=== PATIENT | male | born 2000 | race Caucasian/White ===

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

== ENCOUNTER 2022-08-11 15:37 | Emergency (ER) | payer MEDICAID, SELFPAY ==
--- NOTE | ~2022-08-11 | XR_ITS ---
EXAMINATION: XR TIBIA AND FIBULA, RIGHT CLINICAL INFORMATION: Injury COMPARISON: None TECHNIQUE: AP and lateral views of the right tibia and fibula were obtained. FINDINGS: The bones and soft tissues are normal. No fracture. No osseous lesions. XR/XR tibia fibula RT 2V IMPRESSION: No fracture.
[2022-08-11 16:33] VITALS: BP 116/61; PULSE 73; RESP 16; TEMP 36.4; O2SAT 99; BMI 29.7
--- NOTE | 2022-08-11 16:33 | ED_ITS ---
HPI - Extremity Injury (Lower) General Chief Complaint: Extremity Injury, Lower <REKHA Boyd - Last Filed: 08/11/22 16:39> Stated Complaint: trampoline accident <REKHA Boyd - Last Filed: 08/11/22 16:39> Time Seen by Provider: 08/11/22 18:04 <REKHA Boyd - Last Filed: 08/11/22 16:39> Source: patient <REKHA Carey - Last Filed: 08/11/22 18:51> Mode of arrival: ambulatory <REKHA Carey Last Filed: 08/11/22 18:51> Limitations: no limitations <REKHA Carey Last Filed: 08/11/22 18:51> History of Present Illness HPI Narrative: Patient is a 22 year old assigned male at with no reported medical history presenting to the emergency department today with right lower leg pain. Patient states that 2 days ago he had a large individual fall onto his right leg on a trampoline and he is still having pain. Patient denies any dizziness, lightheadedness, abdominal pain, nausea, vomiting, fever, chills, blurry vision, double vision, loss of vision, chest pain, difficulty breathing, shortness of breath, back pain, night sweats, pain with urination, increased urinary frequency, increased urinary urgency, blood in his urine or stool, syncope or a near syncopal episode, bowel incontinence, bladder incontinence, bowel retention, bladder retention, or any other complaints at this time. <REKHA Carey - Last Filed: 08/11/22 18:51> MD complaint: leg injury <REKHA Carey - Last Filed: 08/11/22 18:51> Onset (ago): day(s) (2) <REKHA Carey Last Filed: 08/11/22 18:51> Type of Injury: blunt <REKHA Carey Last Filed: 08/11/22 18:51> Severity: mild <REKHA Carey Last Filed: 08/11/22 18:51> Severity scale (1-10): 3 <REKHA Carey Last Filed: 08/11/22 18:51> Exacerbating factors: nothing <REKHA Carey Last Filed: 08/11/22 18:51> Context: direct blow <REKHA Carey Last Filed: 08/11/22 18:51> Other symptoms: none <REKHA Carey Last Filed: 08/11/22 18:51> Related Data Home Medications: Previous Rx's Medication Instructions Recorded diphenhydramine HCl 25 mg capsule 25 mg PO TID PRN itching #30 caps 03/23/21 (Benadryl) famotidine 20 mg tablet (Pepcid) 20 mg PO BID #20 tabs 03/23/21 prednisone 20 mg tablet 60 mg PO DAILY 7 days #21 tabs 03/23/21 <REKHA Boyd Last Filed: 08/11/22 16:39> Allergies/Adverse Reactions: Allergies Allergy/AdvReac Type Severity Reaction Status Date / Time No Known Allergies Allergy Verified 08/11/22 16:37 <REKHA Boyd Last Filed: 08/11/22 16:39> Review of Systems Constitutional: Constitutional: Reports no additional constitutional complaints, Denies chills, Denies fever(s) and Denies night sweats <REKHA Carey Last Filed: 08/11/22 18:51> Eyes: Eyes: Reports no additional eye complaints, Denies blurry vision, Denies change in vision, Denies diplopia, Denies eye discharge, Denies loss of vision and Denies eye pain <REKHA Carey Last Filed: 08/11/22 18:51> ENT: Denies dizziness <REKHA Carey Last Filed: 08/11/22 18:51> Cardiovascular: Cardiovascular: Reports no additional cardiovascular complaints, Denies chest pain, Denies lightheadedness, Denies Loss of Consciousness and Denies dyspnea <REKHA Carey Last Filed: 08/11/22 18:51> Respiratory: Respiratory: Reports no additional respiratory complaints and Denies dyspnea <REKHA Carey Last Filed: 08/11/22 18:51> Gastrointestinal: Gastrointestinal: Reports no additional gastrointestinal complaints, Denies abdominal pain, Denies melena, Denies hematochezia, Denies change in bowel habits and Denies change in stool character <REKHA Carey - Last Filed: 08/11/22 18:51> Genitourinary: Genitourinary: Reports no additional male genitourinary complaints, Denies hematuria, Denies oliguria, Denies difficulty urinating, Denies dysuria, Denies urinary frequency, Denies urinary hesitancy, Denies urinary incontinence and Denies urinary urgency <REKHA Carey - Last Filed: 08/11/22 18:51> Musculoskeletal: Musculoskeletal: Reports no additional musculoskeletal complaints, Denies numbness and Denies tingling <REKHA Carey - Last Filed: 08/11/22 18:51> Comments: right lower leg pain <REKHA Carey - Last Filed: 08/11/22 18:51> Neurologic: Denies dizziness, Denies loss of vision, Denies numbness and Denies tingling <REKHA Carey - Last Filed: 08/11/22 18:51> Psychiatric: Psychiatric: Reports no additional psychiatric complaints <REKHA Carey - Last Filed: 08/11/22 18:51> Endocrine: Endocrine: Reports no additional endocrine complaints <REKHA Carey - Last Filed: 08/11/22 18:51> Hematologic/Lymphatic: Hematologic/Lymphatic: Reports no additional hematologic/lymphatic complaints <REKHA Carey - Last Filed: 08/11/22 18:51> Allergic/Immunologic: Allergic/Immunologic: Reports no additional allergic/immunologic complaints <REKHA Carey - Last Filed: 08/11/22 18:51> [facility] Past Medical History Attestation statement: The following information was validated with the patient. <REKHA Carey - Last Filed: 08/11/22 18:51> Source: old records reviewed and nursing notes reviewed <REKHA Carey - Last Filed: 08/11/22 18:51> Medical History: Medical History No pertinent past medical history <REKHA Boyd - Last Filed: 08/11/22 16:39> Social History Social History: Social History Advance Directives: No Advance Directives Information Provided: No <REKHA Boyd - Last Filed: 08/11/22 16:39> Physical Exam Vital Signs: Vital Signs: Last Vital Signs Temp 97.6 F 08/11/22 16:33 Pulse 73 08/11/22 16:33 Resp 16 08/11/22 16:33 BP 116/61 08/11/22 16:33 Pulse Ox 99 08/11/22 16:33 O2 Del Method 08/11/22 16:33 BMI result Body Mass Index 29.7 <REKHA Boyd - Last Filed: 08/11/22 16:39> Vital Signs: Last Vital Signs Temp 97.6 F 08/11/22 16:33 Pulse 73 08/11/22 16:33 Resp 16 08/11/22 16:33 BP 116/61 08/11/22 16:33 Pulse Ox 99 08/11/22 16:33 O2 Del Method 08/11/22 16:33 BMI result Body Mass Index 29.7 <REKHA Carey - Last Filed: 08/11/22 18:51> Const: General: cooperative, no acute distress, alert and awake <REKHA Carey - Last Filed: 08/11/22 18:51> Nutritional Appearance: well nourished <REKHA Carey - Last Filed: 08/11/22 18:51> Orientation/consciousness: patient oriented x3 <REKHA Carey - Last Filed: 08/11/22 18:51> Limitations: no limitations <REKHA Carey - Last Filed: 08/11/22 18:51> HEENT: Head: Yes normal to inspection and Yes atraumatic <REKHA Carey - Last Filed: 08/11/22 18:51> Ears: hearing grossly normal bilaterally and external ears normal <REKHA Carey - Last Filed: 08/11/22 18:51> General nose exam: Normal external nose present, no nasal discharge noted and no epistaxis <REKHA Carey - Last Filed: 08/11/22 18:51> Face and sinus: Yes normal facial exam, No abrasion and No laceration <REKHA Carey - Last Filed: 08/11/22 18:51> Mouth: Normal oral and palatal mucosa present, no drooling and no muffled voice <Marni Gracia [place] - Last Filed: 08/11/22 18:51> Eyes: General: appearance normal, both eyes and all related structures <Marni Gracia [place] - Last Filed: 08/11/22 18:51> Periorbital: periorbital findings normal <Marni Gracia [place] - Last Filed: 08/11/22 18:51> Eyelids: Yes eyelids normal <Marni Gracia [place] - Last Filed: 08/11/22 18:51> Conjunctivae: conjunctivae normal <Marni Gracia [place] - Last Filed: 08/11/22 18:51> Pupils: Equal, round and reactive pupils present <Marni Gracia [place] - Last Filed: 08/11/22 18:51> EOM: EOMs intact bilaterally <Marni Gracia [place] - Last Filed: 08/11/22 18:51> Neck: Neck: Yes normal visual inspection, Yes full ROM and Yes no lymphadenopathy <Marni Gracia [place] - Last Filed: 08/11/22 18:51> Chest: Chest palpation & inspection: normal inspection of the chest <Marni Trippsisi [place] - Last Filed: 08/11/22 18:51> Resp: Effort & Inspection: normal respiratory effort and able to speak in complete sentences <Marni Gracia [place] - Last Filed: 08/11/22 18:51> Auscultation: clear to auscultation bilaterally <Marni Trippsisi [place] - Last Filed: 08/11/22 18:51> Cardio: Rate: regular rate <Marni Gracia [place] - Last Filed: 08/11/22 18:51> Rhythm: regular rhythm <Marni Trippsisi [place] - Last Filed: 08/11/22 18:51> GI: Inspection: Yes normal to inspection <Marni Trippsisi [place] - Last Filed: 08/11/22 18:51> Neuro: General: patient oriented x3 and moves all extremities <Marni TrippREKHA laird - Last Filed: 08/11/22 18:51> Cranial nerves: Yes Equal, round and reactive pupils present <Marni Trippsisi [place] - Last Filed: 08/11/22 18:51> Cognition (Neuro): normal cognition <Marni TrippREKHA laird - Last Filed: 08/11/22 18:51> Motor exam (neuro): 5/5 motor strength present throughout <Marni GrcaiaREKHA - Last Filed: 08/11/22 18:51> Sensory Exam: Normal double simultaneous stimulation for sensation <Marni GraciaREKHA - Last Filed: 08/11/22 18:51> Coordination: [id number] test normal <Marni TrippREKHA laird - Last Filed: 08/11/22 18:51> Extrem: General: Yes normal to inspection, Yes full ROM and Yes capillary refill normal <Marni TrippREKHA laird - Last Filed: 08/11/22 18:51> Psych: Appearance: grossly normal <Marni TrippREKHA laird - Last Filed: 08/11/22 18:51> Mental Status: mental status grossly normal <Marni TrippREKHA laird - Last Filed: 08/11/22 18:51> Affect: normal affect <Marnimaura TrippREKHA laird - Last Filed: 08/11/22 18:51> Attitude: cooperative <Marni TrippREKHA laird - Last Filed: 08/11/22 18:51> Thought process: Normal thought process present <Marnimaura TrippREKHA laird - Last Filed: 08/11/22 18:51> Thought content: Normal thought content present <Marni TrippREKHA laird - Last Filed: 08/11/22 18:51> Insight: Good insight present (Psych) <Marnimaura TrippREKHA laird - Last Filed: 08/11/22 18:51> Course Course Course Narrative: 16:34 - RME - 22 yo male presents to the ER for evaluation of right lower leg injury s/p injury on 08/09. He states a large 6'5 man fell onto his right lower leg while at the [facility] [place]. He is ambulatory but has soft tissue tenderness and swelling of the lower right leg, most consistent with contusion and hematoma. Will get xray to r/o fx but most likely soft tissue injury. NV int act distally and compartments are soft and compressible. ruben wrap and ice placed on the leg for now. <REKHA Boyd - Last Filed: 08/11/22 16:39> Medical Decision Making Medical Decision Making MDM Narrative: Patient is a 22 year old assigned male at with no reported medical history presenting to the emergency department today with right lower leg pain. Patient's physical exam was unremarkable. Patient's right lower leg x-ray showed no acute process. I explained my physical exam findings as well as all test results to the patient. I answered all questions asked by the patient. I stressed the importance of the patient taking his medication as prescribed. I stressed the importance of the patient following up with his primary care provider. I stressed the importance of the patient returning to the emergency department immediately if his symptoms were to worsen or if he were to develop any dizziness, shortness of breath, difficulty breathing, chest pain, blurry vision, loss of vision, nausea, vomiting, abdominal pain, fever, chills, back pain, or any other complaints. Patient verbalized agreement and understanding with this treatment plan and discharge. <REKHA Carey - Last Filed: 08/11/22 18:51> Differential Diagnosis Differential Diagnoses: The differential diagnosis associated with the presentation includes <REKHA Carey - Last Filed: 08/11/22 18:51> right lower leg fracture, right lower leg pain <REKHA Carey - Last Filed: 08/11/22 18:51> Radiology Impression Discussion of test interpretation with radiology: I have reviewed the radiologist's reading. <REKHA Carey - Last Filed: 08/11/22 18:51> Radiologist Impression: My interpretation is in agreement with the radiologist's impression of this imaging study. EXAMINATION: XR TIBIA AND FIBULA, RIGHT CLINICAL INFORMATION: Injury? COMPARISON: None? TECHNIQUE: AP and lateral views of the right tibia and fibula were obtained. FINDINGS: The bones and soft tissues are normal. No fracture. No osseous lesions. ? XR/XR tibia fibula RT 2V IMPRESSION: No fracture. Dictated By: Natty Silva MD Signed By: Electronically signed by Natty Silva MD 08/11/22 1825 <REHKA Carey - Last Filed: 08/11/22 18:51> Discharge Plan Discharge Clinical Impression: Leg pain <REKHA Boyd - Last Filed: 08/11/22 16:39> Patient Disposition: Home, Self-Care <REKHA Boyd - Last Filed: 08/11/22 16:39> Instructions: Leg Pain (ED) <REKHA Boyd - Last Filed: 08/11/22 16:39> Additional Instructions: Follow up with your primary care provider and if pain persists >2 weeks, an orthopedic provider. Return to the emergency department immediately if your symptoms worsen or if you develop any dizziness, shortness of breath, difficulty breathing, chest pain, blurry vision, loss of vision, nausea, vomiting, abdominal pain, fever, chills, back pain, or any other complaints. <REKHA Boyd - Last Filed: 08/11/22 16:39> Prescriptions: No Action diphenhydramine HCl [Benadryl] 25 mg capsule 25 mg PO TID PRN (Reason: itching) Qty: 30 0RF famotidine [Pepcid] 20 mg tablet 20 mg PO BID Qty: 20 0RF prednisone 20 mg tablet 60 mg PO DAILY 7 Days Qty: 21 0RF <REKHA Boyd - Last Filed: 08/11/22 16:39> Referrals: [facility] [Provider Group] (If pain persists >2 weeks, call to establish and follow up with an orthopedic provider. ) [facility] [Primary Care Provider] - <REKHA Boyd - Last Filed: 08/11/22 16:39> Stand Alone Forms: Work/School Release <REKHA Boyd - Last Filed: 08/11/22 16:39> Interventions: ED Discharge Assessment Last Done: 08/11/22 18:25 <REKHA Boyd - Last Filed: 08/11/22 16:39> Discharge Date/Time: 08/11/22 18:26 <REKHA Boyd - Last Filed: 08/11/22 16:39> Print Language: Maltese <REKHA Boyd - Last Filed: 08/11/22 16:39>
== END 2022-08-11 18:26 | disposition home or self-care (01) ==
PROVIDERS: Emergency Provider Emergency Medicine
DX: M79.661 Pain in right lower leg (principal)
CPT/HCPCS: 73590; 99282; 99283

== ENCOUNTER 2022-09-30 10:37 | Emergency (ER) | payer MEDICAID, SELFPAY ==
--- NOTE | ~2022-09-30 | US_ITS ---
EXAMINATION: US ABDOMEN COMPLETE CLINICAL INFORMATION: Abdominal pain and vomiting. COMPARISON: None TECHNIQUE: Real-time imaging of the abdominal viscera. FINDINGS: PANCREAS: Visualized portions unremarkable. ABDOMINAL AORTA: Visualized portions unremarkable. INFERIOR VENA CAVA: Visualized portions unremarkable. LIVER: Diffuse increased echotexture without focal abnormality. GALLBLADDER: Unremarkable. COMMON BILE DUCT: Normal in caliber measuring 0.2 cm in diameter. RIGHT KIDNEY: 10.1 cm. Unremarkable. LEFT KIDNEY: 11.1 cm. Unremarkable. SPLEEN: 11.1 cm. Unremarkable. FREE FLUID: None. US/US abdomen complete IMPRESSION: Diffuse increased hepatic echotexture is nonspecific in a patient of this age, but can be seen with hepatic steatosis. No other significant abnormality.
[2022-09-30 10:43] VITALS: BP 116/64; PULSE 78; RESP 18; TEMP 36.6; O2SAT 98; BMI 28.1
[2022-09-30 11:10] LABS: MANUAL DIFF FLAG NO
[2022-09-30 11:12] LABS: Basophils Absolute Auto 0.1 X10*3/uL (0.0-0.2); Basophils Percent Auto 0.7 % (0-2); Eosinophils Absolute Auto 0.1 X10*3/uL (0.0-0.4); Eosinophils Percent Auto 1.5 % (0-4); Hematocrit 42.5 % (42.0-52.0); Hemoglobin 14.4 g/dl (14.0-18.0); Imm Gran Abs Auto 0.02 X10*3/uL (0.00-0.03); Imm Gran Pct Auto 0.2 % (0.0-0.4); Lymphocytes Absolute Auto 2.4 X10*3/uL (1.2-4.9); Lymphocytes Percent Auto 27.7 % (20-40); Mean Corpuscular HGB Conc 33.9 g/dl (31.0-36.0); Mean Corpuscular Hemoglobin 30.6 pg (27.0-33.0); Mean Corpuscular Volume 90.2 fL (80.0-98.0); Mean Platelet Volume 10.1 fL (9.4-12.4); Monocytes Absolute Auto 0.6 X10*3/uL (0.1-1.2); Neutrophils Absolute Auto 5.5 x10*3/uL (2.0-8.3); Neutrophils Percent Auto 62.9 % (45-73); Platelet Count 311 X10*3/uL (160-400); Red Blood Count 4.71 X10*6/uL (4.60-5.80); Red Cell Distribution Width 12.4 % (11.0-16.0); White Blood Count 8.8 X10*3/uL (4.8-10.8)
[2022-09-30 11:28] LABS: Alanine Aminotransferase 42 U/L (0-40); Albumin Level 4.2 g/dL (3.5-5.0); Alkaline Phosphatase 49 U/L (39-117); Anion Gap 13 (12-20); Aspartate Amino Transferase 17 U/L (5-37); Bilirubin Direct 0.2 mg/dL (0.0-0.5); Bilirubin Total 0.4 mg/dL (0.0-1.0); Blood Urea Nitrogen 10 mg/dL (9-16); Calcium 9.2 mg/dL (8.4-10.2); Carbon Dioxide 25 mmol/L (22-29); Chloride 108 mmol/L (96-108); Creatinine Clr Calc Pharmacy 148.8; Estimated Glomerular Filt Rate > 60; Glucose Random 105 mg/dL (60-115); Lipase 24 U/L (8-78); Potassium 4.1 mmol/L (3.3-5.1); Sodium 142 mmol/L (135-145); Total Protein 6.6 g/dL (6.5-8.0)
--- NOTE | 2022-09-30 17:22 | ED.ABDPAIN ---
HPI - Abdominal Pain General Chief Complaint: Abdominal Pain Stated Complaint: vomiting Time Seen by Provider: 09/30/22 16:45 Source: patient Mode of arrival: ambulatory History of Present Illness HPI narrative: 22-year-old male with no significant past medical history presenting to the ED complaining of daily morning nausea and vomiting x2 weeks. States symptoms improve throughout the day. Reports mild abdominal discomfort when vomiting, however denies pain at present. Does report marijuana use. Denies fever, chills, dysuria/hematuria, flank pain, recent travel, suspicious food intake Onset (ago): week(s) Related Data Previous Rx's Medication Instructions Recorded diphenhydramine HCl 25 mg capsule 25 mg PO TID PRN itching #30 caps 03/23/21 (Benadryl) famotidine 20 mg tablet (Pepcid) 20 mg PO BID #20 tabs 03/23/21 prednisone 20 mg tablet 60 mg PO DAILY 7 days #21 tabs 03/23/21 ondansetron 4 mg disintegrating 4 mg PO Q8H PRN nausea and 09/30/22 tablet vomiting #10 tabs Allergies Allergy/AdvReac Type Severity Reaction Status Date / Time No Known Allergies Allergy Verified 09/30/22 10:43 Review of Systems Review of Systems Constitutional: No Fever, No Chills, No Fatigue, No Malaise ENT/Mouth: No Ear Pain, No Nasal Congestion, No sore throat, No Rhinorrhea, No Swallowing Difficulty Eyes: No Eye Pain, No Swelling, No Redness Cardiovascular: No Chest Pain, No SOB, No Dyspnea on Exertion, No Orthopnea, No Edema, No Palpitations Respiratory: No Cough, No Sputum, No Dyspnea Gastrointestinal: + Nausea, + Vomiting, No Diarrhea, No Constipation, + Abdominal discomfort Genitourinary: No irregular bleeding, No Dysuria, No Hematuria, No Flank Pain, No Urinary Flow Changes, No Hesitancy Musculoskeletal: No joint pain, No Myalgias, No Joint Swelling Skin: No Skin Lesions, No rash Neuro: No Weakness, No Headache Yes all other systems are reviewed and are negative Constitutional: Reports as per HPI [facility] Past Medical History Attestation statement: The following information was validated with the patient. Medical History No pertinent past medical history Social History Social History Advance Directives: No Physical Exam ED Vital Signs: Vital Signs - 24 hr 09/30/22 10:43 Temperature 98 F Pulse Rate 78 Respiratory Rate 18 Blood Pressure 116/64 Pulse Oximetry 98 BMI result Body Mass Index 28.1 Const General: cooperative, healthy appearing and no acute distress Orientation/consciousness: patient oriented x3 Limitations: no limitations HENMT Head: Yes normal to inspection and Yes atraumatic Ears: hearing grossly normal bilaterally General nose exam: Normal external nose present Face and sinus: Yes normal facial exam Eyes General: appearance normal, both eyes and all related structures EOM: EOMs intact bilaterally Neck Neck: Yes normal visual inspection and Yes no meningeal signs Resp Effort & Inspection: normal respiratory effort and no respiratory distress Cardio Rate: regular rate Heart sounds: S1 normal heart sound present and S2 normal heart sound present GI Inspection: Yes normal to inspection Palpation (GI): Soft to palpation, nontender, no guarding and not rigid General: Yes no CVA tenderness Back/Spine/Pelvis Back: no CVA tenderness Skin Rashes: no rashes Wounds: no wounds Neuro General: patient oriented x3, tone normal and no meningeal signs Gait exam (Neuro): Normal gait present Extrem General: Yes normal to inspection Course Course Course Narrative: -labs unremarkable US abdomen complete IMPRESSION: Diffuse increased hepatic echotexture is nonspecific in a patient of this age, but can be seen with hepatic steatosis. No other significant abnormality. -UA negative -patient tolerated p.o. GI cocktail without difficulty Results discussed with patient including worrisome signs and symptoms and strict return precautions, and when to return to the emergency department. They verbalized understanding and feel safe for discharge at this time. Medical Decision Making Medical Decision Making [facility] Narrative: 22-year-old male with no significant past medical history presenting to the ED complaining of daily morning nausea and vomiting x2 weeks. On exam vital signs stable, NAD, nontoxic appearing, abdomen soft/nontender, no CVA tenderness. Concern for marijuana induced nausea/vomiting/cyclical vomiting vs gastritis vs ?H pylori. Lower suspicion for cholecystitis/cholelithiasis, appendicitis, renal stone/pyelo Plan: Labs and abdomen ultrasound ordered in triage, GI cocktail Differential Diagnosis Differential Diagnoses: The differential diagnosis associated with the presentation includes as above Lab Data [facility] Lab Attestation statement: I reviewed the patient's lab results. 09/30/22 11:06 09/30/22 11:06 Labs: Lab Results 09/30/22 09/30/22 09/30/22 Range/Units 11:06 11:06 17:32 WBC 8.8 (4.8-10.8) X10*3/uL RBC 4.71 (4.60-5.80) X10*6/uL Hgb 14.4 (14.0-18.0) g/dl Hct 42.5 (42.0-52.0) % MCV 90.2 (80.0-98.0) fL MCH 30.6 (27.0-33.0) pg MCHC 33.9 (31.0-36.0) g/dl RDW 12.4 (11.0-16.0) % Plt Count 311 (160-400) X10*3/uL MPV 10.1 (9.4-12.4) fL Immature Gran % (Auto) 0.2 (0.0-0.4) % Neut % (Auto) 62.9 (45-73) % Lymph % (Auto) 27.7 (20-40) % [place] % (Auto) 7.0 (2-11) % Eos % (Auto) 1.5 (0-4) % Baso % (Auto) 0.7 (0-2) % Lymph # (Auto) 2.4 (1.2-4.9) X10*3/uL [place] # (Auto) 0.6 (0.1-1.2) X10*3/uL Eos # (Auto) 0.1 (0.0-0.4) X10*3/uL Baso # (Auto) 0.1 (0.0-0.2) X10*3/uL Abs Immat Gran (auto) 0.02 (0.00-0.03) X10*3/uL Absolute Neuts (auto) 5.5 (2.0-8.3) x10*3/uL Absolute Nucleated RBC 0.000 (0.0-0.012) X10*3/uL Nucleated RBC % (auto) 0.0 (0.0-0.2) /100WBC Sodium 142 (135-145) mmol/L Potassium 4.1 (3.3-5.1) mmol/L Chloride 108 (96-108) mmol/L Carbon Dioxide 25 (22-29) mmol/L Anion Gap 13 (12-20) BUN 10 (9-16) mg/dL Creatinine 0.81 (0.5-1.4) mg/dL Estim Creat Clear Calc 148.8 Estimated GFR > 60 Random Glucose 105 (60-115) mg/dL Calcium 9.2 (8.4-10.2) mg/dL Magnesium 2.2 (1.6-2.6) mg/dL Total Bilirubin 0.4 (0.0-1.0) mg/dL Direct Bilirubin 0.2 (0.0-0.5) mg/dL AST 17 (5-37) U/L ALT 42 H (0-40) U/L Alkaline Phosphatase 49 (39-117) U/L Total Protein 6.6 (6.5-8.0) g/dL Albumin 4.2 (3.5-5.0) g/dL Lipase 24 (8-78) U/L Urine Color Yellow Urine Appearance Cloudy Urine pH 8.0 (5.0-9.0) Ur Specific [place] 1.020 (1.005-1.025) Urine Protein Negative (Neg-Trace) mg/dL Urine Glucose (UA) Negative (Negative) mg/dL Urine Ketones Negative (Negative) mg/dL Urine Blood Negative (Negative) Urine Nitrite Negative (Negative) Ur Leukocyte Esterase Negative (Negative) Radiology Impression Discussion of test interpretation with radiology: I have reviewed the radiologist's reading. External Record Review External record reviewed: Prior outpatient labs and Prior outpatient radiology Medications Administered Discontinued Medications Generic Name Dose Route Start Last Admin Trade Name Freq PRN Reason Stop Dose Admin Al Hydroxide/Mg Hydroxide 30 ml 09/30/22 17:23 09/30/22 17:39 Magnesium Hydrox/Alum Hydrox 30 Ml Oral.Susp PO 09/30/22 17:24 30 ml ONCE ONE Administration Famotidine 20 mg 09/30/22 17:23 09/30/22 17:39 Famotidine 20 Mg Tablet PO 09/30/22 17:24 20 mg ONCE ONE Administration Lidocaine HCl 15 ml 09/30/22 17:23 09/30/22 17:39 Lidocaine Hcl Viscous 2 % 15 Ml Solution MUCOUS MEM 09/30/22 17:24 15 ml ONCE ONE Administration Discharge Plan Discharge Clinical Impression: Nausea & vomiting Patient Disposition: Home, Self-Care Instructions: Acute Nausea and Vomiting (ED) Additional Instructions: Your blood work was reassuring. Your urine is not infected. Your ultrasound shows some fatty liver. Avoid fatty/greasy foods/fried foods and alcohol Your nausea and vomiting could be related to your marijuana use, please avoid this Please follow-up with her doctor, you may need H pylori testing. Zofran as antinausea medication, take as needed. If symptoms persist or worsen, your unable to eat or drink return to the emergency department Prescriptions: New ondansetron 4 mg tablet,disintegrating 4 mg PO Q8H PRN (Reason: nausea and vomiting) Qty: 10 0RF No Action diphenhydramine HCl [Benadryl] 25 mg capsule 25 mg PO TID PRN (Reason: itching) Qty: 30 0RF famotidine [Pepcid] 20 mg tablet 20 mg PO BID Qty: 20 0RF prednisone 20 mg tablet 60 mg PO DAILY 7 Days Qty: 21 0RF Referrals: [facility] [place] [facility] [Provider Group] - 1 week Center,Formerly [facility] [Primary Care Provider] -
[2022-09-30] MEDS: Magnesium Hydrox/Alum Hydrox 30 ML ORAL.SUSP PO (17:39)
[2022-09-30] MEDS: Famotidine 20 MG TABLET PO (17:39)
[2022-09-30] MEDS: Lidocaine HCl Viscous 2 % 15 ML SOLUTION MUCOUS MEM (17:39)
[2022-09-30 17:47] LABS: Magnesium 2.2 mg/dL (1.6-2.6)
[2022-09-30 17:49] LABS: Appearance Urine Cloudy; Color Urine Yellow; Glucose Urine UA Negative (Negative); Leukocyte Esterase Urine Negative (Negative); Nitrite Urine Negative (Negative); Urine Blood Negative (Negative); Urine Ketones Negative (Negative); Urine Protein Negative (Neg-Trace)
== END 2022-09-30 18:14 | disposition home or self-care (01) ==
PROVIDERS: Physician Assistant; Emergency Provider Emergency Medicine
DX: R11.2 Nausea with vomiting, unspecified (principal); R10.13 Epigastric pain; Z79.899 Other long term (current) drug therapy
CPT/HCPCS: 36415; 76700; 80048; 80076; 81003; 83690; 83735; 85025; 99282; 99284

== ENCOUNTER 2023-08-18 20:42 | Emergency (ER) | payer SELFPAY ==
[2023-08-18 21:30] VITALS: BP 118/61; PULSE 93; RESP 18; TEMP 36.3; O2SAT 97; BMI 25.1
--- NOTE | 2023-08-18 22:56 | ED.GENADULT ---
HPI - General Adult General Chief complaint: Upper Respiratory Symptoms Stated complaint: flu like symptoms/sore throat Time Seen by Provider: 08/18/23 21:52 Source: patient, family, RN notes reviewed and old records reviewed Mode of arrival: ambulatory Limitations: no limitations History of Present Illness HPI narrative: 23-year-old male presents for evaluation of dry cough, fevers, body aches, sore throat. Patient reports he tested positive for COVID-19 1 week ago today He reports that his symptoms returned a few days ago His significant other and daughter are present similar symptoms Related Data Previous Rx's Medication Instructions Recorded diphenhydramine HCl 25 mg capsule 25 mg PO TID PRN itching #30 caps 03/23/21 (Benadryl) famotidine 20 mg tablet (Pepcid) 20 mg PO BID #20 tabs 03/23/21 prednisone 20 mg tablet 60 mg (3 x 20 mg) PO DAILY 7 days 03/23/21 #21 tabs ondansetron 4 mg disintegrating 4 mg PO Q8H PRN nausea and 09/30/22 tablet vomiting #10 tabs Allergies Allergy/AdvReac Type Severity Reaction Status Date / Time No Known Allergies Allergy Verified 09/30/22 10:43 Review of Systems Constitutional: Constitutional: Reports body ache(s), Reports chills, Reports fever(s) and Reports headache(s) ENT: Reports headache(s) and Reports sore throat Cardiovascular: Cardiovascular: Denies dyspnea Respiratory: Respiratory: Reports cough and Denies dyspnea Musculoskeletal: Musculoskeletal: Denies back pain Neurologic: Reports headache(s) PMFSH Past Medical History Onset Date is defined in the Problem List Problems that require an onset date and time if occurred within 24 hrs of arrival to the ED Aortic Dissection and Rupture; Neurologic impairment; Cardiopulmonary Arrest; Endotracheal Intubation; Insertion or Replacement of Mechanical Circulatory Assist Device Medical History No pertinent past medical history Social History Social History Advance Directives: No Advance Directives Information Provided: No Physical Exam ED Vital Signs: Vital Signs - 24 hr 08/18/23 21:30 Temperature 97.4 F Pulse Rate 93 Respiratory Rate 18 Blood Pressure 118/61 Pulse Oximetry 97 Oxygen Delivery Method Room Air BMI result Body Mass Index 25.1 Const General: healthy appearing, comfortable, no acute distress, alert and awake Nutritional Appearance: well nourished Orientation/consciousness: patient oriented x3 HENMT Head: Yes normocephalic and Yes atraumatic Eyes Eyelids: Yes eyelids normal Conjunctivae: conjunctivae normal Sclerae: sclerae normal Corneas: corneas normal EOM: EOMs intact bilaterally Neck Neck: Yes full ROM Resp Effort & Inspection: normal respiratory effort, able to speak in complete sentences and not labored Skin General skin exam: elasticity normal Neuro General: patient oriented x3 Cranial nerves: Yes Bilaterally intact EOM present Cognition (Neuro): normal cognition Extrem Other: Moving all extremities well without any obvious deformities Medical Decision Making Medical Decision Making [facility] Narrative: 23-year-old male, otherwise healthy presents for evaluation of flu-like symptoms. He tested positive for influenza. His symptoms started over 48 hours ago, he is outside the window for Tamiflu treatment. His vital signs remained stable, he will be discharged with symptomatic care only Differential Diagnosis Differential Diagnoses: The differential diagnosis associated with the presentation includes Influenza COVID-19 Upper respiratory infection Viral syndrome Pneumonia Lab Data Labs: Lab Results 08/18/23 Range/Units 22:06 COVID-19 (RIGO) Negative (Negative) COVID-19 Clin Com See Note Influenza Type A (KARISSA) Positive A (Negative) Influenza Type B (KARISSA) Negative (Negative) Influenza A & B Note See Note S. pyogenes GrpA KARISSA Negative (Negative) Discharge Plan Discharge Clinical Impression: Influenza Patient Disposition: Home, Self-Care Instructions: Influenza (ED) Additional Instructions: You tested positive for influenza A Use Motrin/Tylenol for fevers, body aches Drink lots of fluids Follow-up with your primary doctor Return for new or worsening symptoms Prescriptions: No Action diphenhydramine HCl [Benadryl] 25 mg capsule 25 mg PO TID PRN (Reason: itching) Qty: 30 0RF famotidine [Pepcid] 20 mg tablet 20 mg PO BID Qty: 20 0RF prednisone 20 mg tablet 60 mg PO DAILY 7 Days Qty: 21 0RF ondansetron 4 mg tablet,disintegrating 4 mg PO Q8H PRN (Reason: nausea and vomiting) Qty: 10 0RF Stand Alone Forms: Work/School Release Interventions: ED Discharge Assessment Last Done: 08/18/23 23:06 Discharge Date/Time: 08/18/23 23:06
== END 2023-08-18 23:06 | disposition home or self-care (01) ==
PROVIDERS: Emergency Provider Emergency Medicine
DX: J10.1 Influenza due to other identified influenza virus with other respiratory manifestations (principal); Z11.52 Encounter for screening for COVID-19; J02.9 Acute pharyngitis, unspecified
CPT/HCPCS: 87502; 87635; 87651; 99282; 99283

== ENCOUNTER 2024-07-08 00:07 | Emergency (ER) | payer MEDICAID, SELFPAY ==
[2024-07-08 00:13] VITALS: BP 114/63; PULSE 74; RESP 16; TEMP 36.7; O2SAT 98; BMI 42.3
[2024-07-08 00:33] LABS: MANUAL DIFF FLAG NO
[2024-07-08 00:35] LABS: Basophils Absolute Auto 0.1 X10*3/uL (0.0-0.2); Basophils Percent Auto 0.6 % (0-2); Eosinophils Absolute Auto 0.2 X10*3/uL (0.0-0.4); Eosinophils Percent Auto 1.8 % (0-4); Hematocrit 41.7 % (42.0-52.0); Hemoglobin 14.5 g/dl (14.0-18.0); Imm Gran Abs Auto 0.02 X10*3/uL (0.00-0.03); Imm Gran Pct Auto 0.2 % (0.0-0.4); Lymphocytes Absolute Auto 3.5 X10*3/uL (1.2-4.9); Lymphocytes Percent Auto 40.4 % (20-40); Mean Corpuscular HGB Conc 34.8 g/dl (31.0-36.0); Mean Corpuscular Hemoglobin 30.1 pg (27.0-33.0); Mean Corpuscular Volume 86.5 fL (80.0-98.0); Mean Platelet Volume 9.3 fL (9.4-12.4); Monocytes Absolute Auto 0.8 X10*3/uL (0.1-1.2); Monocytes Percent Auto 8.6 % (2-11); Neutrophils Absolute Auto 4.2 x10*3/uL (2.0-8.3); Neutrophils Percent Auto 48.4 % (45-73); Platelet Count 306 X10*3/uL (160-400); Red Blood Count 4.82 X10*6/uL (4.60-5.80); Red Cell Distribution Width 11.8 % (11.0-16.0); White Blood Count 8.8 X10*3/uL (4.8-10.8)
[2024-07-08 00:47] LABS: Alanine Aminotransferase 19 U/L (0-40); Albumin Level 4.7 g/dL (3.5-5.0); Alkaline Phosphatase 47 U/L (39-117); Anion Gap 13 (12-20); Aspartate Amino Transferase 17 U/L (5-37); Bilirubin Total 0.4 mg/dL (0.0-1.0); Blood Urea Nitrogen 15 mg/dL (9-16); Calcium 9.7 mg/dL (8.4-10.2); Carbon Dioxide 25 mmol/L (22-29); Chloride 106 mmol/L (96-108); Creatinine Clr Calc Pharmacy 159.6; Estimated Glomerular Filt Rate > 60; Glucose Random 101 mg/dL (60-115); Lipase 20 U/L (8-78); Potassium 3.9 mmol/L (3.3-5.1); Sodium 140 mmol/L (135-145); Total Protein 7.4 g/dL (6.5-8.0)
--- NOTE | 2024-07-08 02:54 | PC.NURSE ---
pt from home, a&ox4, respirations even and unlabored. pt reporting onset of lower back pain x3 days. pt denies any trauma to the area and denies any urinary symptoms. pt denies pain to palpitation at this time. pt reports that he feels pain with movement and occasionally breathing. pt denies sob/cp.
[2024-07-08 04:00] VITALS: BP 119/72; PULSE 76; RESP 13; TEMP 36.5; O2SAT 98
--- NOTE | 2024-07-08 04:03 | ED.GENADULT ---
HPI - General Adult General Chief complaint: Back Pain/Injury Stated complaint: SOB Time Seen by Provider: 07/08/24 04:03 History of Present Illness ED Provider: Rubi CASTANEDA narrative: The patient is a 24-year-old male who has no significant past medical history. He is on no medications. He says that for the last 4 days he has been having problems with pain in his lower back. The pain is intermittent. He says that when he feels the pain he feels short of breath. He has not had any fever, sweats, chills. No cough or sputum. No bowel or bladder control problems. No symptoms in his legs. The pain does not radiate down his legs. He does not have any calf pain or swelling. He does not think he has had any injury. 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 He says that that the pain is most apparent when he stands up. At the time that I was seeing him his pain had subsided. He was not have any significant amount of pain at the time that I saw him and he was not feeling short of breath. Related Data Previous Rx's ?Medication ?Instructions ?Recorded diphenhydramine HCl 25 mg capsule 25 mg PO TID PRN itching #30 caps 03/23/21 (Benadryl) famotidine 20 mg tablet (Pepcid) 20 mg PO BID #20 tabs 03/23/21 prednisone 20 mg tablet 60 mg (3 x 20 mg) PO DAILY 7 days 03/23/21 #21 tabs ondansetron 4 mg disintegrating 4 mg PO Q8H PRN nausea and 09/30/22 tablet vomiting #10 tabs acetaminophen 500 mg tablet 1,000 mg (2 x 500 mg) PO TID PRN 07/08/24 pain #18 tabs cyclobenzaprine 10 mg tablet 10 mg PO TID PRN muscle spasm #14 07/08/24 tabs ibuprofen 400 mg tablet 400 mg PO Q6H PRN pain #14 tabs 07/08/24 Allergies Allergy/AdvReac Type Severity Reaction Status Date / Time No Known Allergies Allergy Verified 07/08/24 00:17 Review of Systems Review of Systems: Yes all other systems are reviewed and are negative PMFSH Past Medical History Medical History No pertinent past medical history Social History Social History Smoked in Last 30 Days: No Use of substances other than those prescribed or required for medical reasons: Yes Substance Use Type: Marijuana Advance Directives: No Do you have a plan to hurt others: No Plan Physical Exam ED Vital Signs: Vital Signs - 24 hr 07/08/24 00:13 Temperature 98.0 F Pulse Rate 74 Respiratory Rate 16 Blood Pressure 114/63 Pulse Oximetry 98 Oxygen Delivery Method Room Air BMI result Body Mass Index 42.3 Const Other: The patient is awake, alert, pleasant, cooperative. He seemed as if he has been resting comfortably on the hospital stretcher prior to my evaluation. HENMT Other: Face is symmetrical. Mucous membranes moist. Eyes Other: Pupils are round equal, conjunctivae are clear, extraocular movements intact. Neck Other: Moving his neck easily Resp Effort & Inspection: normal respiratory effort Auscultation: clear to auscultation bilaterally Cardio Rate: regular rate Rhythm: regular rhythm Heart sounds: S1 normal heart sound present and S2 normal heart sound present GI Other: Abdomen is soft and nontender Back/Spine/Pelvis Other: No significant tenderness with palpation of the midline spine of the thoracic or lumbar spines. No significant tenderness with palpation of the paraspinous tissues. Skin Other: The skin is dry and unremarkable Neuro Other: The patient is awake and alert. Mental status is normal. Cranial nerves are grossly intact. He moves his extremities normally and appropriately. He has a steady gait. He seems neurologically intact. Extrem Other: No calf swelling or tenderness. No peripheral edema. No asymmetry. Medical Decision Making Medical Decision Making [facility] Narrative: The patient is a 24-year-old male presents with intermittent low back pain over the last 4 days. He says that when the pain is prominent he also feel short of breath. At the time that I evaluated him he was not having any significant pain and he was having no shortness of breath. He does not believe he has had an injury of any kind. Clinically the patient looks well. He is neurologically intact. His vital signs are normal. He is PERC negative. No risk factors for pulmonary embolism or DVT. He is on no medications and has no significant past medical history. I suspect the patient probably has some degree of musculoskeletal back pain which is perhaps exacerbated by the active breathing sometimes. I do not see any indication for imaging. The patient will be advised to take 1000 mg of acetaminophen up to 3 times a day as needed. I have sent a prescription for ibuprofen 400 mg q.6 hours as needed. Also cyclobenzaprine if necessary in addition to these other medications. No driving or working on cyclobenzaprine. The patient is advised to contact his insurance company ([employer]) to help get a primary care doctor. He should return if worse. Lab Data 07/08/24 00:28 07/08/24 00:28 Labs: Lab Results 07/08/24 Range/Units 00:28 WBC 8.8 (4.8-10.8) X10*3/uL RBC 4.82 (4.60-5.80) X10*6/uL Hgb 14.5 (14.0-18.0) g/dl Hct 41.7 L (42.0-52.0) % MCV 86.5 (80.0-98.0) fL MCH 30.1 (27.0-33.0) pg MCHC 34.8 (31.0-36.0) g/dl RDW 11.8 (11.0-16.0) % Plt Count 306 (160-400) X10*3/uL MPV 9.3 L (9.4-12.4) fL Immature Gran % (Auto) 0.2 (0.0-0.4) % Neut % (Auto) 48.4 (45-73) % Lymph % (Auto) 40.4 H (20-40) % [place] % (Auto) 8.6 (2-11) % Eos % (Auto) 1.8 (0-4) % Baso % (Auto) 0.6 (0-2) % Lymph # (Auto) 3.5 (1.2-4.9) X10*3/uL [place] # (Auto) 0.8 (0.1-1.2) X10*3/uL Eos # (Auto) 0.2 (0.0-0.4) X10*3/uL Baso # (Auto) 0.1 (0.0-0.2) X10*3/uL Abs Immat Gran (auto) 0.02 (0.00-0.03) X10*3/uL Absolute Neuts (auto) 4.2 (2.0-8.3) x10*3/uL Absolute Nucleated RBC 0.000 (0.0-0.012) X10*3/uL Nucleated RBC % (auto) 0.0 (0.0-0.2) /100WBC Sodium 140 (135-145) mmol/L Potassium 3.9 (3.3-5.1) mmol/L Chloride 106 (96-108) mmol/L Carbon Dioxide 25 (22-29) mmol/L Anion Gap 13 (12-20) BUN 15 (9-16) mg/dL Creatinine 0.91 (0.5-1.4) mg/dL Estim Creat Clear Calc 159.6 Estimated GFR > 60 Random Glucose 101 (60-115) mg/dL Calcium 9.7 (8.4-10.2) mg/dL Total Bilirubin 0.4 (0.0-1.0) mg/dL AST 17 (5-37) U/L ALT 19 (0-40) U/L Alkaline Phosphatase 47 (39-117) U/L Total Protein 7.4 (6.5-8.0) g/dL Albumin 4.7 (3.5-5.0) g/dL Lipase 20 (8-78) U/L Discharge Plan Discharge Clinical Impression: Low back pain Patient Disposition: Home, Self-Care Instructions: Acute Low Back Pain (ED) Additional Instructions: I believe that you were having muscle pain in your lower back. Please use acetaminophen (Tylenol) 1000 mg up to 3 times a day as needed for pain. In addition you may take ibuprofen every 6 hours as needed for pain as well. I have sent a prescription for this medication. Also I have sent a prescription for a muscle relaxant medication, cyclobenzaprine. This may be taken up to 3 times a day. However you must not take this medicine if you were driving or working. You should only take this medicine if you are going to be home and taking it easy. Please work on getting a regular doctor. Contact your insurance for assistance in getting a primary care doctor. Return to the emergency room if you feel significantly worse in any way. Prescriptions: New ibuprofen 400 mg tablet 400 mg PO Q6H PRN (Reason: pain) Qty: 14 0RF acetaminophen 500 mg tablet 1,000 mg PO TID PRN (Reason: pain) Qty: 18 0RF cyclobenzaprine 10 mg tablet 10 mg PO TID PRN (Reason: muscle spasm) Qty: 14 0RF No Action diphenhydramine HCl [Benadryl] 25 mg capsule 25 mg PO TID PRN (Reason: itching) Qty: 30 0RF famotidine [Pepcid] 20 mg tablet 20 mg PO BID Qty: 20 0RF prednisone 20 mg tablet 60 mg PO DAILY 7 Days Qty: 21 0RF ondansetron 4 mg tablet,disintegrating 4 mg PO Q8H PRN (Reason: nausea and vomiting) Qty: 10 0RF Print Language: Mosotho
[2024-07-08] MEDS: Acetaminophen 325 MG TABLET 975 MG PO (04:34)
[2024-07-08] MEDS: Ibuprofen 400 MG TABLET PO (04:34)
[2024-07-08 04:43] VITALS: BP 119/72; PULSE 76; RESP 13; TEMP 36.5; O2SAT 98
== END 2024-07-08 04:45 | disposition home or self-care (01) ==
PROVIDERS: Emergency Provider Emergency Medicine
DX: M54.50 Low back pain, unspecified (principal); R06.02 Shortness of breath; Z79.899 Other long term (current) drug therapy
CPT/HCPCS: 36415; 80053; 83690; 85025; 99283; 99284

== ENCOUNTER 2024-09-06 21:57 | Emergency (ER) | payer SELFPAY ==
[2024-09-06 22:04] VITALS: BP 122/67; PULSE 89; RESP 16; TEMP 36.7; O2SAT 98; BMI 26.6
[2024-09-06 22:26] LABS: IDNOW Serial# 08D9AD1C; Strep A Nucleic Acid Negative (Negative)
[2024-09-06 22:30] LABS: COVID-19 Test Negative (Negative); IDNOW Serial# 55D5AD1C
[2024-09-06 22:31] LABS: IDNOW Serial# 58CA691E; Influenza A Positive (Negative)
[2024-09-06 22:32] LABS: Influenza B2 Negative (Negative)
--- NOTE | 2024-09-06 23:46 | ED_ITS ---
HPI - General Adult General Chief complaint: Upper Respiratory Symptoms Stated complaint: sore throat,headache, congestion Time Seen by Provider: 09/06/24 23:36 History of Present Illness ED Provider: Toy Teran HPI narrative: 24-year-old male presents to ED for sore throat, cough, congestion and fever since Tuesday. Patient states girlfriend and his daughter also having similar symptoms. Girlfriend recently tested positive for flu. Patient denied any dist ress Related Data Previous Rx's ?Medication ?Instructions ?Recorded diphenhydramine HCl 25 mg capsule 25 mg PO TID PRN itching #30 caps 03/23/21 (Benadryl) famotidine 20 mg tablet (Pepcid) 20 mg PO BID #20 tabs 03/23/21 prednisone 20 mg tablet 60 mg (3 x 20 mg) PO DAILY 7 days 03/23/21 #21 tabs ondansetron 4 mg disintegrating 4 mg PO Q8H PRN nausea and 09/30/22 tablet vomiting #10 tabs acetaminophen 500 mg tablet 1,000 mg (2 x 500 mg) PO TID PRN 07/08/24 pain #18 tabs cyclobenzaprine 10 mg tablet 10 mg PO TID PRN muscle spasm #14 07/08/24 tabs ibuprofen 400 mg tablet 400 mg PO Q6H PRN pain #14 tabs 07/08/24 Allergies Allergy/AdvReac Type Severity Reaction Status Date / Time No Known Allergies Allergy Verified 09/06/24 22:05 Review of Systems Review of Systems: Coughing, sore throat, congestion Yes all other systems are reviewed and are negative PMFSH Past Medical History Medical History No pertinent past medical history Social History Social History Substance Use Type: Marijuana Advance Directives: No Advance Directives Information Provided: No Do you have a plan to hurt others: No Plan Physical Exam ED Vital Signs: Vital Signs - 24 hr 09/06/24 22:04 09/07/24 00:19 Temperature 98.1 F 98.1 F Pulse Rate 89 89 Respiratory Rate 16 16 Blood Pressure 122/67 122/67 Pulse Oximetry 98 98 Oxygen Delivery Method Room Air Room Air BMI result Body Mass Index 26.6 Const General: cooperative, healthy appearing, comfortable, no acute distress, well developed, alert, awake and Physically active Orientation/consciousness: patient oriented x3 [facility] Head: Yes normal to inspection, Yes No palpable skull fracture present, Yes normocephalic and Yes atraumatic Ears: hearing grossly normal bilaterally, external ears normal, TM's normal bilaterally, TM normal on the right, TM normal on the left, EAC's normal, mastoids normal and no periauricular adenopathy Throat: Yes posterior oropharynx normal, Yes tonsils normal and Yes uvula midline Eyes General: appearance normal, both eyes and all related structures Neck Neck: Yes normal visual inspection, Yes full ROM, Yes no lymphadenopathy, Yes no meningeal signs, Yes trachea midline, Yes supple, No anterior neck swelling and No tender Chest Chest palpation & inspection: normal inspection of the chest and normal palpation of entire chest wall Resp Effort & Inspection: normal respiratory effort and able to speak in complete sentences Auscultation: clear to auscultation bilaterally Cardio Jugular venous distension: no JVD Heart sounds: S1 normal heart sound present and S2 normal heart sound present GI Inspection: Yes normal to inspection Palpation (GI): Soft to palpation, not firm, nontender, no guarding and not rigid General: Yes no CVA tenderness Back/Spine/Pelvis Back: no CVA tenderness and No back tenderness Skin General skin exam: no rashes or lesions noted, elasticity normal and turgor normal Neuro General: patient oriented x3, gait normal, tone normal, moves all extremities, Normal light touch and pain sensation, no meningeal signs, no focal motor deficits, CN's II-XI intact bilaterally and normal sensation to monofilament Extrem General: Yes normal to inspection, Yes full ROM and Yes capillary refill normal Psych Appearance: grossly normal, well kempt and not disheveled Medical Decision Making Medical Decision Making MDM Narrative: 24-year-old male presents to ED for URI symptoms. Patient is positive for flu. Patient well-appearing. Patient symptoms over 48 hours not candidate for Tamiflu. Not suspecting pneumonia, respiratory failure, hypoxia, or any other life threatening etiology. Patient explained worrisome signs and informed to return to the ED immediately. Negative for signs of peritonsillar abscess Differential Diagnosis Differential Diagnoses: The differential diagnosis associated with the presentation includes (COVID, influenza, RSV, strep) Admission/Observation Consideration of admission/observation: Escalation of care including admission/observation considered Lab Data MDM Lab Attestation statement: I reviewed the patient's lab results. Labs: Lab Results 09/06/24 Range/Units 22:08 COVID-19 (RIGO) Negative (Negative) COVID-19 Clin Com See Note Influenza Type A (KARISSA) Positive A (Negative) Influenza Type B (KARISSA) Negative (Negative) Influenza A & B Note See Note S. pyogenes GrpA KARISSA Negative (Negative) Independent Historian Clinical information obtained from an independent historian. History obtained from or confirmed by: Other (Patient) Discharge Plan Discharge Clinical Impression: Influenza Patient Disposition: Home, Self-Care Instructions: Influenza (ED) Additional Instructions: You tested positive for the flu. Recommend follow-up with your primary care provider. Return to the ED for any chest pain, shortness of breath, weakness, dizziness, or any other concerning symptoms. Prescriptions: No Action diphenhydramine HCl [Benadryl] 25 mg capsule 25 mg PO TID PRN (Reason: itching) Qty: 30 0RF famotidine [Pepcid] 20 mg tablet 20 mg PO BID Qty: 20 0RF prednisone 20 mg tablet 60 mg PO DAILY 7 Days Qty: 21 0RF ondansetron 4 mg tablet,disintegrating 4 mg PO Q8H PRN (Reason: nausea and vomiting) Qty: 10 0RF ibuprofen 400 mg tablet 400 mg PO Q6H PRN (Reason: pain) Qty: 14 0RF acetaminophen 500 mg tablet 1,000 mg PO TID PRN (Reason: pain) Qty: 18 0RF cyclobenzaprine 10 mg tablet 10 mg PO TID PRN (Reason: muscle spasm) Qty: 14 0RF Stand Alone Forms: Work/School Release Interventions: ED Discharge Assessment Last Done: 09/07/24 00:19 Discharge Date/Time: 09/07/24 00:20 Print Language: Latvian
[2024-09-07 00:19] VITALS: BP 122/67; PULSE 89; RESP 16; TEMP 36.7; O2SAT 98
== END 2024-09-07 00:20 | disposition home or self-care (01) ==
PROVIDERS: Emergency Provider Emergency Medicine Emergency Medical Services
DX: J10.1 Influenza due to other identified influenza virus with other respiratory manifestations (principal); R05.9 Cough, unspecified; R09.81 Nasal congestion; R50.9 Fever, unspecified; F12.90 Cannabis use, unspecified, uncomplicated; Z03.818 Encounter for observation for suspected exposure to other biological agents ruled out
CPT/HCPCS: 87502; 87635; 87651; 99282; 99283